=== PATIENT | male | born 1985 | race Caucasian/White ===

== ENCOUNTER 2017-10-13 20:41 | Emergency (ER) | payer OTHER ==
[~2017-10-13] VITALS: Ht 177.8 cm; Wt 68.0 kg
[2017-10-13 21:09] VITALS: BP 121/73
[2017-10-13] MEDS ORDERED: HYDROcodone-ACET 5/325MG TAB PO ONE (23:30)
== END 2017-10-14 00:15 | disposition home or self-care (01) ==
LOC: ER 20:41
DX: S22.32XA Fracture of one rib, left side, initial encounter for closed fracture (principal); Y08.89XA Assault by other specified means, initial encounter; F17.210 Nicotine dependence, cigarettes, uncomplicated; Y93.89 Activity, other specified; Y99.8 Other external cause status; Y92.89 Other specified places as the place of occurrence of the external cause
CPT/HCPCS: 70450; 71250; 73030; 73090